=== PATIENT | female | born 2000 ===

== ENCOUNTER 2020-04-24 13:52 | Outpatient (CLI) | payer OTHER ==
[~2020-04-24] VITALS: Ht 154.9 cm; Wt 83.2 kg
--- NOTE | 2020-04-24 14:00 | NUR ---
Patient arrives ambulatory with spouse with complaints of possible SROM around 0600 this morning. Patient states she has "some drops of fluid on and off". Reports occasional mild cramping but denies contractions. Denies vaginal bleeding and reports normal movement. Patient changes into gown, EFM explained and placed. VS obtained. Amiotrace negative, SVE by Cecille Mg RN unchanged from office. Patient repositioned WL and updated on plan of care. See physician notification.
[2020-04-24 14:01] VITALS: BP 128/77; PULSE 115; TEMP 98.2
[2020-04-24] MEDS ORDERED: PRENATAL (14:17)
[2020-04-24 14:32] VITALS: BP 128/77; PULSE 115; TEMP 98.2
--- NOTE | 2020-04-24 14:41 | NUR ---
Patient given discharge instructions. Labor precautions and kick counts reviewed. Patient denies questions. LEaves ambulatory with spouse.
[2020-04-27] MEDS ORDERED: MOTRIN 800800 MG/TAB PO (16:54)
[2020-04-27] MEDS ORDERED: PERCOCET 325 MG1 TA2 PO (16:54)
== END 2020-04-24 14:40 | disposition home or self-care (01) ==
LOC: LDRO 13:52 → LDR 14:00 → LDRO 14:40
DX: O26.893 Other specified pregnancy related conditions, third trimester (principal); R25.2 Cramp and spasm; Z3A.39 39 weeks gestation of pregnancy
CPT/HCPCS: OP

== ENCOUNTER 2020-04-26 08:12 | Outpatient (CLI) | payer OTHER ==
[~2020-04-26] VITALS: Ht 165.1 cm; Wt 83.2 kg
[~2020-04-26 08:12] MED LIST: PRENATAL
--- NOTE | 2020-04-26 08:20 | NUR ---
Presents to labor and delivery. States has been having contractions through out the night. Vag exam done, no change since previous check two days ago. Assessment done, questions offered and answered.
[2020-04-26 08:30] VITALS: BP 121/68; PULSE 107; TEMP 98.1
[2020-04-26 08:31] VITALS: BP 121/68; PULSE 107; TEMP 98.1
--- NOTE | 2020-04-26 09:02 | NUR ---
0830 PATIENT HERE FOR CONTRACTIONS. ASSESSMENT COMPLETED. EFM ON FHT 130 BABY VERY ACTIVE, CONTRACTIONS EVERY 5 MIN. SVE UNCHANGED FROM OFFICE VISIT LAST WEEK. 2. DR COCHRAN CALLED AND UPDATED. ORDERS TO MONITOR FOR 1 HOUR AND RECHECK.
[2020-04-26 09:47] VITALS: BP 124/76; PULSE 101
--- NOTE | 2020-04-26 09:51 | NUR ---
0950 E UNCHANGED AT THIS TIME. DR COCHRAN CALLED AND UPDATED, ORDERS TO DIMISS TO HOME TO FOLLOW UP WITH DR SHELTON TOMORROW. ALL DISCHARGE INSTRUCTIONS GIVEN TO PATIENT AND AT THIS TIME. VERBAL UNDERSTANDING NOTED. ENCOURAGED PATEINT TO TAKE WARM BATH OR SHOWER FOR DISCOMFORT.
[2020-04-27] MEDS ORDERED: PERCOCET 325 MG1 TA2 PO (16:54)
[2020-04-27] MEDS ORDERED: MOTRIN 800800 MG/TAB PO (16:54)
== END 2020-04-26 09:50 | disposition home or self-care (01) ==
LOC: LDRO 08:12 → LDR 08:12 → LDRO 09:50
DX: O62.9 Abnormality of forces of labor, unspecified (principal); Z3A.39 39 weeks gestation of pregnancy
CPT/HCPCS: OP